=== PATIENT | female | born 1995 | race Caucasian/White ===

== ENCOUNTER 2023-05-18 07:57 | Emergency (ER) | payer MEDICAID ==
[2023-05-18] MEDS ORDERED: MORPHINE SULFATE 2 MG/ML SYRINGE IV STA (08:21)
[2023-05-18 08:24] VITALS: RESP 18
[2023-05-18 08:25] LABS: Appearance,Urine Clear (Clear); Bacteria,Urine Rare /hpf; Bilirubin,Urine Negative (Negative); Blood,Urine Large (Negative); Color,Urine Light Yellow; Glucose,Urine (UA) Negative (Negative); Ketones,Urine Negative (Negative); Leukocyte Esterase,Urine Negative (Negative); Mucus,Urine Rare /hpf; Nitrite,Urine Negative (Negative); Protein,Urine 1+ (Negative); RBC,Urine 25 /hpf (0-5); Specific Gravity,Urine 1.009 (1.001-1.035); Squamous Epithelial Cell,Urine 1 /hpf (0-4); Urobilinogen,Urine <2.0 mg/dL (<2.0); WBC,Urine 2 /hpf (0-5)
--- NOTE | 2023-05-18 08:25 | ED ---
General Adult HPI - General Chief complaint: Abdominal Pain Stated complaint: R side pain Time Seen by Provider: 05/18/23 08:04 Source: patient Mode of arrival: ambulatory Limitations: no limitations - History of Present Illness Initial comments: Dictation was produced using [employer] dictation software. please excuse any grammatical, word or spelling errors. Chief Complaint: 28-year-old female with right upper quadrant abdominal pain History of Present Illness: 2:28-year-old female presents with right upper quadrant abdominal pain. Patient has been having intermittent right upper quadrant abdominal pain for months. States that sometimes she has these sharp episodes of right upper quadrant pain are related to her back. Typically doesn't last long. This evening she woke up from bed because of right upper quadrant abdominal pain her pain was more intense and lasted longer than usual prompting her to come to the ER. Denies any fevers. Denies . No medical problems. No nausea vomiting. The ROS documented in this emergency department record has been reviewed and confirmed by me. Those systems with pertinent positive or negative responses have been documented in the HPI. All other systems are other negative and/or noncontributory. - Related Data Allergies Allergy/AdvReac Type Severity Reaction Status Date / Time No Known Allergies Allergy Verified 05/18/23 08:01 Review of Systems ROS Statement: Those systems with pertinent positive or pertinent negative responses have been documented in the HPI. ROS Other: All systems not noted in ROS Statement are negative. Past Medical History Past Medical History: No Reported History History of Any Multi-Drug Resistant Organisms: None Reported Past Surgical History: No Surgical Hx Reported Past Psychological History: No Psychological Hx Reported Smoking Status: Never smoker Past Alcohol Use History: None Reported Past Drug Use History: None Reported General Exam - General Exam Comments Initial Comments: PHYSICAL EXAM: General Impression: Alert and oriented x3, not in acute distress HEENT: Normocephalic atraumatic, extra-ocular movements intact, pupils equal and reactive to light bilaterally, mucous membranes moist. Cardiovascular: Heart regular rate and rhythm Chest: Able to complete full sentences, no retractions, no tachypnea Abdomen: abdomen soft, tenderness to the right upper quadrant, non-distended, no organomegaly Musculoskeletal: Pulses present and equal in all extremities, no peripheral edema Motor: no focal deficits noted Neurological: CN II-XII grossly intact, no focal motor or sensory deficits noted Skin: Intact with no visualized rashes Psych: Normal affect and mood Limitations: no limitations Course Vital Signs 05/18/23 05/18/23 05/18/23 07:59 08:23 09:36 Temperature 98.5 F 98.2 F 97.5 F L Pulse Rate 83 76 65 Respiratory 20 18 18 Rate Blood Pressure 122/88 136/99 145/96 O2 Sat by Pulse 99 96 99 Oximetry Medical Decision Making - Medical Decision Making Was pt. sent in by a medical professional or institution (, PA, HIM CLERK, urgent care, hospital, or jail...) When possible be specific @ -No Did you speak to anyone other than the patient for history (EMS, parent, family, police, friend...)? What history was obtained from this source @ -No Did you review nursing and triage notes (agree or disagree)? Why? @ -I reviewed and agree with nursing and triage notes Were old charts reviewed (outside hosp., previous admission, EMS record, old EKG, old radiological studies, urgent care reports/EKG's, jail records)? Report findings @ -No old charts were reviewed Differential Diagnosis (chest pain, altered mental status, abdominal pain women, abdominal pain men, vaginal bleeding, musculoskeletal, weakness, fever, dyspnea, syncope, headache, dizziness, GI bleed, back pain, seizure, CVA, palpatations, mental health)? @ -Differential Abdominal Pain Women: Appendicitis, Cholecystitis, diverticulosis, ischemic bowel, pancreatitis, hepatitis, UTI, gastroenteritis, AAA, incarcerated hernia, bowel obstruction, constipation, inflammatory bowel, hepatitis, peptic ulcer disease, splenic infarction, perforated viscus, vulvitis, ovarian torsion, PID, kidney stone, placenta abruption, this is not meant to be an all-inclusive list EKG interpreted by me (3pts min.). @ -None done X-rays interpreted by me (1pt min.). @ -None done CT interpreted by me (1pt min.). @ -Abdominal ultrasound shows gallstones U/S interpreted by me (1pt. min.). @ -None done What testing was considered but not performed or refused? (CT, X-rays, U/S, labs)? Why? @ -None What meds were considered but not given or refused? Why? @ -None Did you discuss the management of the patient with other professionals (professionals i.e. , PA, HIM CLERK, lab, RT, psych nurse, licensed social worker, electric motor rebuilder, teacher, senior major gifts officer, case resource manager)? Give summary @ -No Was smoking cessation discussed for >3mins.? @ -No Was critical care preformed (if so, how long)? @ -No Were there social determinants of health that impacted care today? How? (Homele ssness, low income, unemployed, alcoholism, drug addiction, transportation, low edu. Level, literacy, decrease access to med. care, custodial, rehab)? @ -No Was there de-escalation of care discussed even if they declined (Discuss DNR or withdrawal of care, Hospice)? DNR status @ -No What co-morbidities impacted this encounter? (DM, HTN, Smoking, COPD, CAD, Cancer, CVA, ARF, Chemo, Hep., AIDS, mental health diagnosis, sleep apnea, morbid obesity)? @ -None Was patient admitted / discharged? Hospital course, mention meds given and route, prescriptions, significant lab abnormalities, going to OR and other pertinent info. @ -28 Year-old female presents with right upper quadrant abdominal pain. Vital signs upon arrival are stable. Laboratory evaluation obtained. No leukocytosis. Abdominal exam is unremarkable. Ultrasound shows gallstones. Patient reevaluated at bedside with complete resolution of symptoms. Patient discharged with instruction to follow up with general surgery for outpatient management. Patient also given return precautions Undiagnosed new problem with uncertain prognosis? @ -No Drug Therapy requiring intensive monitoring for toxicity (Heparin, Nitro, Insulin, Cardizem)? @ -No Were any procedures done? @ -No Diagnosis/symptom? Acute, or Chronic, or Acute on Chronic? Uncomplicated (without systemic symptoms) or Complicated (systemic symptoms)? @ -Gallstones Side effects of treatment? @ -No Exacerbation, Progression, or Severe Exacerbation? @ -No Poses a threat to life or bodily function? How? (Chest pain, [place], [place], pneumonia, PE, COPD, DKA, ARF, appy, cholecystitis, CVA, Diverticulitis, Homicidal, Suicidal, threat to staff... and all critical care pts) @ -No - Lab Data Result diagrams: 05/18/23 08:33 05/18/23 08:33 Lab Results 05/18/23 05/18/23 05/18/23 Range/Units 08:14 08:14 08:33 WBC 8.0 (3.8-10.6) k/uL RBC 4.40 (3.80-5.40) m/uL Hgb 12.5 (11.4-16.0) gm/dL Hct 37.1 (34.0-46.0) % MCV 84.4 (80.0-100.0) fL MCH 28.4 (25.0-35.0) pg MCHC 33.7 (31.0-37.0) g/dL RDW 14.1 (11.5-15.5) % Plt Count 228 (150-450) k/uL MPV 9.2 Neutrophils % 65 % Lymphocytes % 25 % Monocytes % 5 % Eosinophils % 3 % Basophils % 1 % Neutrophils # 5.2 (1.3-7.7) k/uL Lymphocytes # 2.0 (1.0-4.8) k/uL Monocytes # 0.4 (0-1.0) k/uL Eosinophils # 0.2 (0-0.7) k/uL Basophils # 0.1 (0-0.2) k/uL Sodium (137-145) mmol/L Potassium (3.5-5.1) mmol/L Chloride (98-107) mmol/L Carbon Dioxide (22-30) mmol/L Anion Gap mmol/L BUN (7-17) mg/dL Creatinine (0.52-1.04) mg/dL Est GFR (CKD-EPI)AfAm (>60 ml/min/1.73 sqM) Est GFR (CKD-EPI)NonAf (>60 ml/min/1.73 sqM) Glucose (74-99) mg/dL Calcium (8.4-10.2) mg/dL Total Bilirubin (0.2-1.3) mg/dL AST (14-36) U/L ALT (4-34) U/L Alkaline Phosphatase (38-126) U/L Total Protein (6.3-8.2) g/dL Albumin (3.5-5.0) g/dL Lipase (23-300) U/L Urine Color Light Yellow Urine Appearance Clear (Clear) Urine pH 6.0 (5.0-8.0) Ur Specific Ovid 1.009 (1.001-1.035) Urine Protein 1+ H (Negative) Urine Glucose (UA) Negative (Negative) Urine Ketones Negative (Negative) Urine Blood Large H (Negative) Urine Nitrite Negative (Negative) Urine Bilirubin Negative (Negative) Urine Urobilinogen <2.0 (<2.0) mg/dL Ur Leukocyte Esterase Negative (Negative) Urine RBC 25 H (0-5) /hpf Urine WBC 2 (0-5) /hpf Ur Squamous Epith Cells 1 (0-4) /hpf Urine Bacteria Rare H (None) /hpf Urine Mucus Rare H (None) /hpf Urine HCG, Qual Not Detected (Not Detectd) 05/18/23 Range/Units 08:33 WBC (3.8-10.6) k/uL RBC (3.80-5.40) m/uL Hgb (11.4-16.0) gm/dL Hct (34.0-46.0) % MCV (80.0-100.0) fL MCH (25.0-35.0) pg MCHC (31.0-37.0) g/dL RDW (11.5-15.5) % Plt Count (150-450) k/uL MPV Neutrophils % % Lymphocytes % % Monocytes % % Eosinophils % % Basophils % % Neutrophils # (1.3-7.7) k/uL Lymphocytes # (1.0-4.8) k/uL Monocytes # (0-1.0) k/uL Eosinophils # (0-0.7) k/uL Basophils # (0-0.2) k/uL Sodium 137 (137-145) mmol/L Potassium 4.3 (3.5-5.1) mmol/L Chloride 107 (98-107) mmol/L Carbon Dioxide 23 (22-30) mmol/L Anion Gap 7 mmol/L BUN 13 (7-17) mg/dL Creatinine 1.00 (0.52-1.04) mg/dL Est GFR (CKD-EPI)AfAm 88 (>60 ml/min/1.73 sqM) Est GFR (CKD-EPI)NonAf 76 (>60 ml/min/1.73 sqM) Glucose 108 H (74-99) mg/dL Calcium 9.7 (8.4-10.2) mg/dL Total Bilirubin 0.2 (0.2-1.3) mg/dL AST 28 (14-36) U/L ALT 19 (4-34) U/L Alkaline Phosphatase 68 (38-126) U/L Total Protein 6.4 (6.3-8.2) g/dL Albumin 3.5 (3.5-5.0) g/dL Lipase 224 (23-300) U/L Urine Color Urine Appearance (Clear) Urine pH (5.0-8.0) Ur Specific Ovid (1.001-1.035) Urine Protein (Negative) Urine Glucose (UA) (Negative) Urine Ketones (Negative) Urine Blood (Negative) Urine Nitrite (Negative) Urine Bilirubin (Negative) Urine Urobilinogen (<2.0) mg/dL Ur Leukocyte Esterase (Negative) Urine RBC (0-5) /hpf Urine WBC (0-5) /hpf Ur Squamous Epith Cells (0-4) /hpf Urine Bacteria (None) /hpf Urine Mucus (None) /hpf Urine HCG, Qual (Not Detectd) Disposition Clinical Impression: Gallstones Disposition: HOME SELF-CARE Condition: Good Instructions (If sedation given, give patient instructions): Gallstones (ED) Is patient prescribed a controlled substance at d/c from ED?: No Referrals: Oscar Jenkins MD [STAFF PHYSICIAN] - 1-2 days Sim Mohr MD [Medical Doctor] - 1-2 days Jing Lombardo MD [STAFF PHYSICIAN] - 1-2 days Time of Disposition: 09:50
[2023-05-18 08:45] LABS: Basophils # (A) 0.1 k/uL (0-0.2); Basophils % (A) 1 %; Eosinophils # (A) 0.2 k/uL (0-0.7); Eosinophils % (A) 3 %; HCT 37.1 % (34.0-46.0); HGB 12.5 gm/dL (11.4-16.0); Lymphocytes % (A) 25 %; MCH 28.4 pg (25.0-35.0); MCHC 33.7 g/dL (31.0-37.0); MCV 84.4 fL (80.0-100.0); Mean Platelet Volume 9.2; Monocytes # (A) 0.4 k/uL (0-1.0); Monocytes % (A) 5 %; Neutrophils # (A) 5.2 k/uL (1.3-7.7); Neutrophils % (A) 65 %; Platelet Count 228 k/uL (150-450); RDW 14.1 % (11.5-15.5)
[2023-05-18 08:55] LABS: ALT 19 U/L (4-34); AST 28 U/L (14-36); African American GFR (CKD) 88 (>60 ml/min/1.73 sqM); Albumin 3.5 g/dL (3.5-5.0); Alkaline Phosphatase 68 U/L (38-126); Anion Gap 7 mmol/L; Blood Urea Nitrogen 13 mg/dL (7-17); Calcium 9.7 mg/dL (8.4-10.2); Carbon Dioxide 23 mmol/L (22-30); Chloride 107 mmol/L (98-107); Glucose 108 mg/dL (74-99); Lipase 224 U/L (23-300); Non-African American GFR(CKD) 76 (>60 ml/min/1.73 sqM); Potassium 4.3 mmol/L (3.5-5.1); Sodium 137 mmol/L (137-145); Total Bilirubin 0.2 mg/dL (0.2-1.3); Total Protein 6.4 g/dL (6.3-8.2)
--- NOTE | 2023-05-18 09:30 | US ---
EXAMINATION TYPE: US abdomen limited DATE OF EXAM: 05/18/2023 COMPARISON: NONE CLINICAL INDICATION: Female, 28 years old with history of ruq pain; TECHNIQUE: Multiple sonographic images of the right upper quadrant are obtained. FINDINGS: EXAM MEASUREMENTS: Liver Length: 16.7cm Gallbladder Wall: 0.2 cm CBD: 0.5 cm Right Kidney: 12.2 x 5.6 x 4.0 cm Pancreas: portion seen appear wnl Liver: wnl Gallbladder: stone within neck, when rolling patient small stones moved to fundus while large 1.5cm neck stone remained Evidence for sonographic Ragsdale's sign: YES CBD: wnl Right Kidney: renal fullness IMPRESSION: Gallstone within the gallbladder neck with positive sonographic Ragsdale sign. Wall is within normal li mits for size and there is no pericholecystic fluid. Correlate for acute cholecystitis
[2023-05-18 09:38] VITALS: BP 145/96; PULSE 65; TEMP 97.5
== END 2023-05-18 09:58 | disposition home or self-care (01) ==
LOC: EC 07:57
DX: K80.20 Calculus of gallbladder without cholecystitis without obstruction (principal)
CPT/HCPCS: 36415; 80053; 83690; 85025; 81001; 81025; 76705; 99284; 96374; J2270

== ENCOUNTER → 2023-06-10 | Day surgery (SDC) | payer MEDICAID ==
[~2023-06-10] MED LIST: ACETAMINOPHEN TAB 500 MG TAB PO PRN; BUPIVACAINE (PF) 0.25% 10 ML VIAL SQ ONE; DEXAMETHASONE SOD PHOSPHATE 4 MG/ML 1 ML VIAL IV ONE; GLYCOPYRROLATE 0.2 MG/ML 2 ML VIAL ONE; HEPARIN SODIUM,PORCINE/PF 5,000 UNIT/0.5 ML SYRINGE SQ PRN; HYDROmorphone (PF) 1 MG/ML ONE; HYDROmorphone 0.5 MG/0.5 ML SYRINGE IVP ONE; HYDROmorphone 0.5 MG/0.5 ML SYRINGE IVP PRN; LACTATED RINGERS 1,000 ML IV ONE; LACTATED RINGERS 1,000 ML IV SCH; LIDOCAINE 1% (10MG/ML) FOR IV START INTRADERMA PRN; LIDOCAINE 2% INJ 20 MG/ML (2 ML VIAL) ONE; MIDAZOLAM 2 MG/2 ML VIAL ONE; NEOSTIGMINE 1 MG/ML 10 ML VIAL ONE; ONDANSETRON 4 MG/2 ML VIAL IVP ONE; ONDANSETRON 4 MG/2 ML VIAL ONE; PROPOFOL 10 MG/ML 20 ML VIAL IV ONE; ROCURONIUM 10 MG/ML (5 ML VIAL) IV ONE; SUCCINYLCHOLINE CHLORIDE 200 MG/10 ML VIAL IV ONE; droPERidol 5 MG/2 ML VIAL IVP ONE; fentaNYL (PF) 50 MCG/ML 2 ML AMP ONE
[2023-06-10 07:33] VITALS: TEMP 97.8
--- NOTE | 2023-06-10 09:29 | P.OP ---
Date of Procedure: 06/10/23 Preoperative Diagnosis: Cholelithiasis Postoperative Diagnosis: Cholelithiasis Procedure(s) Performed: Laparoscopic cholecystectomy Anesthesia: WINSTON Surgeon: Oscar Jenkins Estimated Blood Loss (ml): 5 Pathology: other (Gallbladder) Condition: stable Disposition: PACU Description of Procedure: The patient was placed on the operating table. The patient received a general endotracheal tube anesthesia. The patients abdomen was prepped and draped in the usual sterile fashion. Through an infraumbilical stab incision, the fascia of the anterior abdominal wall was grasped with a pair of Kochers and then the Veress needle was placed in the peritoneal cavity. Position of the Veress needle was confirmed with positive drop test. The abdomen was then insufflated. After adequate insufflation, the 10 mm trocar was placed in the peritoneal cavity. Following this the laparoscope was placed in the peritoneal cavity. The patient was placed in the head-up, right side up position and then a 5 mm trocar was placed in the right lateral and right subcostal position under direct visualization. A 8 mm trocar was placed in the epigastric position. The gallbladder was grasped in the fundus and infundibulum. Traction on the gallbladder was placed in the lateral and the cephalad positions. The triangle of Calot was visualized.. The cystic duct was bluntly dissected until the union of the cystic duct and common bile duct was seen. A critical view of safety was achieved. The cystic duct was then divided and sealed with the Harmonic scissors. A PDS Endoloop was then placed throughout the cystic duct stump. The cystic artery divided and sealed with the Harmonic scissors. The gallbladder was then removed from the liver bed using Harmonic scissors. The gallbladder was then extracted through the epigastric port site. Operative field was checked for any bleeding spots and Harmonic scissors was used to coagulate the liver bed. The abdomen was irrigated. The trocars were removed. The skin was closed using interrupted 3-0 Vicryl suture. Dermabond dressing were applied. The patient tolerated the procedure well.
[2023-06-10 14:27] VITALS: RESP 14
[2023-06-10 15:11] VITALS: BP 125/85; PULSE 86
== END | disposition home or self-care (01) ==
LOC: OR 07:05
PROVIDERS: ATTEND Surgery
DX: K80.10 Calculus of gallbladder with chronic cholecystitis without obstruction (principal); Z98.890 Other specified postprocedural states
CPT/HCPCS: 47562; 81025; 88304; J2250; J0330; J1100; J2710; J0690; J2405; J3010; J1170 ×2; J2704; J1644; J2001; J0665

== ENCOUNTER → 2023-09-15 | Outpatient (CLI) | payer MEDICAID | END | disposition home or self-care (01) | LOC: LABPRL 14:05 | PROVIDERS: ATTEND Midwife | DX: Z53.9 Procedure and treatment not carried out, unspecified reason (principal) ==

== ENCOUNTER 2024-03-07 22:06 | Inpatient (IN) | payer MEDICAID, OTHER ==
[2024-03-07 22:18] LABS: Glucose,Whole Blood 80 mg/dL (70-110)
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
[2024-03-07] MEDS: SODIUM CHLORIDE 0.9% 1,000 ML IV STA (22:38)
[2024-03-07 22:45] LABS: Basophils % (A) 0 %; Eosinophils # (A) 0.1 k/uL (0-0.7); Eosinophils % (A) 1 %; HCT 37.7 % (34.0-46.0); HGB 11.7 gm/dL (11.4-16.0); Lymphocytes # (A) 1.9 k/uL (1.0-4.8); Lymphocytes % (A) 26 %; MCH 25.5 pg (25.0-35.0); MCV 82.4 fL (80.0-100.0); Mean Platelet Volume 10.3; Monocytes # (A) 0.3 k/uL (0-1.0); Monocytes % (A) 5 %; Neutrophils # (A) 4.8 k/uL (1.3-7.7); Neutrophils % (A) 66 %; Platelet Count 202 k/uL (150-450); RBC 4.58 m/uL (3.80-5.40); RDW 15.9 % (11.5-15.5); WBC 7.4 k/uL (3.8-10.6)
[2024-03-07 22:49] LABS: Appearance,Urine Clear (Clear); Bacteria,Urine Rare /hpf; Bilirubin,Urine Negative (Negative); Blood,Urine Moderate (Negative); Color,Urine Colorless; Glucose,Urine (UA) Negative (Negative); Ketones,Urine Negative (Negative); Leukocyte Esterase,Urine Negative (Negative); Nitrite,Urine Negative (Negative); Protein,Urine Trace (Negative); RBC,Urine <1 /hpf (0-5); Specific Gravity,Urine 1.001 (1.001-1.035); Squamous Epithelial Cell,Urine 1 /hpf (0-4); Urobilinogen,Urine <2.0 mg/dL (<2.0); WBC,Urine <1 /hpf (0-5)
[2024-03-07 23:19] LABS: Amphetamine Screen,Urine Not Detected (NotDetected); Barbiturate Screen,Urine Not Detected (NotDetected); Benzodiazepines Screen,Urine Not Detected (NotDetected); Cocaine Screen,Urine Not Detected (NotDetected); Methadone Screen, Urine Not Detected (NotDetected); Opiate Screen,Urine Not Detected (NotDetected); Oxycodone Screen, Urine Not Detected (NotDetected); Phencyclidine Screen,Urine Not Detected (NotDetected); Tricyclic Antidepressant,Urine Not Detected (NotDetected); Urn Cannabinoid Scrn Not Detected (NotDetected)
[2024-03-07 23:38] LABS: ALT 13 U/L (4-34); AST 25 U/L (14-36); African American GFR (CKD) 79 (>60 ml/min/1.73 sqM); Alcohol 59 mg/dL; Alkaline Phosphatase 55 U/L (38-126); Anion Gap 8 mmol/L; Blood Urea Nitrogen 12 mg/dL (7-17); Calcium 9.3 mg/dL (8.4-10.2); Carbon Dioxide 20 mmol/L (22-30); Chloride 112 mmol/L (98-107); Glucose 80 mg/dL (74-99); Non-African American GFR(CKD) 68 (>60 ml/min/1.73 sqM); Potassium 3.8 mmol/L (3.5-5.1); Sodium 140 mmol/L (137-145); Total Bilirubin 0.3 mg/dL (0.2-1.3); Total Protein 6.8 g/dL (6.3-8.2)
--- NOTE | 2024-03-08 00:44 | XR ---
EXAM: XR Chest, 1 View CLINICAL HISTORY: ITS.REASON XR Reason: cough TECHNIQUE: Frontal view of the chest. COMPARISON: No relevant prior studies available. FINDINGS: Lungs: Unremarkable. No consolidation. Pleural space: Unremarkable. No pleural effusion or pneumothorax. Heart: Unremarkable. No cardiomegaly or pulmonary vascular congestion. Bones/joints: No acute fracture. No dislocation. IMPRESSION: No evidence of acute cardiopulmonary disease.
[2024-03-08] MEDS ORDERED: ACETAMINOPHEN TAB 325 MG TAB PO PRN (03:47)
[2024-03-08] MEDS ORDERED: traZODone HCL 50 MG TAB PO PRN (03:47)
[2024-03-08] MEDS ORDERED: haloperidoL 5 MG TAB PO PRN (03:47)
[2024-03-08] MEDS ORDERED: MAGNESIUM HYDROXIDE 2,400 MG/30 ML CUP PO PRN (03:47)
[2024-03-08] MEDS ORDERED: LORazepam 2 MG/ML INJ IM PRN (03:47)
[2024-03-08] MEDS ORDERED: LORazepam 1 MG TAB PO PRN (03:47)
[2024-03-08] MEDS ORDERED: IBUPROFEN 600 MG TAB PO PRN (03:47)
[2024-03-08] MEDS ORDERED: MAG HYDROX/AL HYDROX/SIMETH 355 ML BOTTLE PO PRN (03:47)
[2024-03-08] MEDS ORDERED: HALOPERIDOL LACTATE 5 MG/ML 1 ML VIAL IM PRN (03:47)
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
[2024-03-08] MEDS: SERTRALINE 25 MG TAB PO SCH (14:42)
[2024-03-08 16:41] LABS: Chol/HDL Ratio 3.66 Ratio; LDL Cholesterol,Calculated 84.4 mg/dL (0.0-131.0)
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
--- NOTE | 2024-03-09 11:43 | P.PN ---
Progress Note - Text Progress Note Date: 03/09/24 Interval History: Patient was seen wandering the hallways and was directable and agreeable to sp christine with global technical writer in the office. Patient stated that she is doing good today. She is sleeping well, and her appetite is good. She is focused on discharge. She offers no other complaints. Presents as stand offish today and concrete. Still minimizing her suicide attempt. denies any depression or anxiety. At this time patient denies any suicidal or homical ideations, intent or plan. Patient denies any auditory, visual hallucinations and denies any paranoia or delusions. Patient denies any side effects from the medications and has been compliant with meds. MENTAL STATUS EXAM: General Appearance: Patient appears to be stated age, is alert, directable, and attempts to cooperate. Patient appears to have fair hygiene and grooming. Behavior: Patient is seated without any agitated behavior. Minimizing suicide attempt. Guarded, Evasive, demanding less today Speech: Patient's speech is fluent, loud at times, and nonpressured. Argumentative Mood/Affect: Patient reports their mood is depressed, affect is congruent and constricted. Suicidality/Homicidality: Patient denies having any homicidal ideation intent or plan. Denies any suicidal ideations intent or plan Perceptions: Patient denies any visual hallucinations and denies any auditory hallucinations Though content/process: There is no evidence of any delusional thought content and thought process is linear and goal-directed. minimizng her sx, focused on discharge Memory and concentration: AOX3, grossly intact for the purposes of this session Judgment and insight: poor, improving mildly IMPRESSIONS: depressive disorder, unspecified alcohol use disorder, mild PLAN: -Patient is admitted under voluntary status to MHU for stabilization of psychiatric symptoms and safety. Patient has signed adult voluntary form and medication consent and is placed in patient's chart. -Medications : increase Zoloft 50mg po daily for mood/anxiety, trazodone 50mg po qhs PRN for sleep -Ativan and Haldol PRN for agitation/aggression -NRT - nicotine patch -SW on board for discharge planning. Encourage patient to participate in groups to work on coping skills. Likely discharge Thursday, if patient improves
[2024-03-10] MEDS: SERTRALINE 50 MG TAB PO SCH (08:08)
--- NOTE | 2024-03-10 11:06 | P.PN ---
Progress Note - Text Progress Note Date: 03/10/24 Interval History: Patient was seen wandering the hallways and was directable and agreeable to paula king with screenplay writer in the office. Patient stated that she is doing good today. Patient apologetic for her behaviors when she was admitted. Patient admitted that what she did was reckless, however, it was not an attempt at suicide. She is sleeping well, and her appetite is good. She is focused on discharge. She offers no other complaints. She is claiming that she is going to groups and participate as best as she can. Patient denies any depression or anxiety claims that overall she is doing better. At this time patient denies any suicidal or homicidal ideations, intent or plan. Patient denies any auditory, visual hallucinations and denies any paranoia or delusions. Patient denies any side effects from the medications and has been compliant with meds. MENTAL STATUS EXAM: General Appearance: Patient appears to be stated age, is alert, directable, and attempts to cooperate. Patient appears to have fair hygiene and grooming. Behavior: Patient is seated without any agitated behavior. Apologetic, improving Speech: Patient's speech is fluent, loud at times, and nonpressured. not argumentive today Mood/Affect: Patient reports their mood is depressed, affect is congruent improving Suicidality/Homicidality: Patient denies having any homicidal ideation intent or plan. Denies any suicidal ideations intent or plan Perceptions: Patient denies any visual hallucinations and denies any auditory hallucinations Though content/process: There is no evidence of any delusional thought content and thought process is linear and goal-directed. improving mildly Memory and concentration: AOX3, grossly intact for the purposes of this session Judgment and insight: Improving IMPRESSIONS: depressive disorder, unspecified alcohol use disorder, mild PLAN: -Patient is admitted under voluntary status to MHU for stabilization of psychiatric symptoms and safety. Patient has signed adult voluntary form and medication consent and is placed in patient's chart. -Medications : Zoloft 50mg po daily for mood/anxiety, trazodone 50mg po qhs PRN for sleep -Ativan and Haldol PRN for agitation/aggression -NRT - nicotine patch -SW on board for discharge planning. Encourage patient to participate in groups to work on coping skills. Likely discharge tomorrow if patient continues to improve
[2024-03-11 06:24] VITALS: BP 132/60; PULSE 99; RESP 14; TEMP 97.5
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
== END 2024-03-11 12:15 | disposition home or self-care (01) | DRG 881 ==
LOC: EC 22:06 → 3MHU 03-08 03:46
PROVIDERS: ADMIT Psychiatry & Neurology Psychiatry; ATTEND Psychiatry & Neurology Psychiatry
DX: F32.A Depression, unspecified (principal); R45.851 Suicidal ideations; F10.10 Alcohol abuse, uncomplicated; E66.9 Obesity, unspecified; Z68.38 Body mass index [BMI] 38.0-38.9, adult; Z11.52 Encounter for screening for COVID-19; F41.9 Anxiety disorder, unspecified; E78.1 Pure hyperglyceridemia; Y90.2 Blood alcohol level of 40-59 mg/100 ml; X31.XXXA Exposure to excessive natural cold, initial encounter; X71.3XXA Intentional self-harm by drowning and submersion in natural water, initial encounter; Z79.899 Other long term (current) drug therapy
CPT/HCPCS: 36415; 71045; 80053; 80061; 80306; 80320; 81001; 81025; 82075; 83036; 84443; 85025; 87635; 93005; 96360; 96361; 99291

== ENCOUNTER 2024-08-22 08:56 | Emergency (ER) | payer OTHER ==
--- NOTE | 2024-08-22 09:35 | ED ---
Female Urogenital HPI - General Chief complaint: Vaginal Bleeding Stated complaint: Vaginal bleed-10 weeks preg Time Seen by Provider: 08/22/24 09:10 Source: patient, RN notes reviewed Mode of arrival: ambulatory Limitations: no limitations - History of Present Illness Initial comments: This is a 29-year-old female [id number] with no significant past medical history presenting to the emergency department for chief complaint of vaginal bleeding and right flank pain. Patient states that yesterday around 1800 to experience right flank pain and associated vaginal bleeding with passage of clot. Patient is approximately 10 weeks and had ultrasound completed 2 weeks ago which revealed a single intrauterine . She denies blurry vision, do uble vision, headaches, nausea or vomiting. States that urine has been slightly cloudy over the past few days, denies dysuria or increase in urinary frequency and urgency. Patient states that she has a history of kidney infections. Last Menstrual Period: 06/09/24 - Related Data Previous Rx's Medication Instructions Recorded Sertraline [Zoloft] 50 mg PO DAILY 30 Days #30 tab 03/11/24 Allergies Allergy/AdvReac Type Severity Reaction Status Date / Time No Known Allergies Allergy Verified 03/08/24 03:51 Review of Systems ROS Statement: Those systems with pertinent positive or pertinent negative responses have been documented in the HPI. ROS Other: All systems not noted in ROS Statement are negative. Past Medical History Past Medical History: No Reported History Additional Past Medical History / Comment(s): bladder infections History of Any Multi-Drug Resistant Organisms: None Reported Past Surgical History: Cholecystectomy Additional Past Surgical History / Comment(s): unwanted breast tissue removed from under arms Past Anesthesia/Blood Transfusion Reactions: No Reported Reaction Past Psychological History: Anxiety Smoking Status: Never smoker Past Alcohol Use History: None Reported Past Drug Use History: None Reported - Past Family History Father Family Medical History: No Reported History Mother Family Medical History: No Reported History General Exam Limitations: no limitations General appearance: alert, in no apparent distress ENT exam: Present: normal exam, mucous membranes moist Neck exam: Present: normal inspection. Absent: tenderness, meningismus, lymphadenopathy Respiratory exam: Present: normal lung sounds bilaterally. Absent: respiratory distress, wheezes, rales, rhonchi, stridor Cardiovascular Exam: Present: regular rate, normal rhythm, normal heart sounds. Absent: systolic murmur, diastolic murmur, rubs, gallop, clicks GI/Abdominal exam: Present: soft, tenderness (pelvic), normal bowel sounds. Absent: distended, guarding, rebound, rigid Extremities exam: Present: normal inspection, full ROM, normal capillary refill. Absent: tenderness, pedal edema, joint swelling, calf tenderness Back exam: Present: normal inspection, full ROM, CVA tenderness (R) Skin exam: Present: warm, dry, intact, normal color. Absent: rash Course Vital Signs 08/22/24 08/22/24 09:09 12:13 Temperature 98.6 F 98.1 F Pulse Rate 69 68 Respiratory 16 18 Rate Blood Pressure 127/94 130/74 O2 Sat by Pulse 100 99 Oximetry Medical Decision Making - Medical Decision Making Was pt. sent in by a medical professional or institution (, PA, DIRECTOR OF KNOWLEDGE MANAGEMENT, urgent care, hospital, or fci...) When possible be specific @ -No Did you speak to anyone other than the patient for history (EMS, parent, family, police, friend...)? What history was obtained from this source @ -No Did you review nursing and triage notes (agree or disagree)? Why? @ -I reviewed and agree with nursing and triage notes Were old charts reviewed (outside hosp., previous admission, EMS record, old EKG, old radiological studies, urgent care reports/EKG's, fci records)? Report findings @ -No old charts were reviewed Differential Diagnosis (chest pain, altered mental status, abdominal pain women, abdominal pain men, vaginal bleeding, weakness, fever, dyspnea, syncope, headache, dizziness, GI bleed, back pain, seizure, CVA, palpatations, mental health, musculoskeletal)? @ -Differential Vaginal Bleeding: Spontaneous , threatened , molar , ectopic , bloody show, incompetent cervix, abruptioplacenta, placenta previa, uterine rupture, dysfunctional uterine bleeding, hemorrhage, uterine fibroids, this is not meant to be an all-inclusive list. EKG interpreted by me (3pts min.). @ -none X-rays interpreted by me (1pt min.). @ -None done CT interpreted by me (1pt min.). @ -None done U/S interpreted by me (1pt. min.). @ -Transabdominal ultrasound reveals a intrauterine gestation with no heart tones identified a gestational sac estimated gestational age of 6 weeks 6 days What testing was considered but not performed or refused? (CT, X-rays, U/S, labs)? Why? @ -None What meds were considered but not given or refused? Why? @ -None Did you discuss the management of the patient with other professionals (professionals i.e. , PA, DIRECTOR OF KNOWLEDGE MANAGEMENT, lab, RT, psych nurse, rn social work, biochemistry professor, teacher, college service officer, sample case porter)? Give summary @ -No Was smoking cessation discussed for >3mins.? @ -No Was critical care preformed (if so, how long)? @ -No Were there social determinants of health that impacted care today? How? (Homelessness, low income, unemployed, alcoholism, drug addiction, transp ortation, low edu. Level, literacy, decrease access to med. care, custodial, rehab)? @ -No Was there de-escalation of care discussed even if they declined (Discuss DNR or withdrawal of care, Hospice)? DNR status @ -No What co-morbidities impacted this encounter? (DM, HTN, Smoking, COPD, CAD, Cancer, CVA, ARF, Chemo, Hep., AIDS, mental health diagnosis, sleep apnea, morbid obesity)? @ -None Was patient admitted / discharged? Hospital course, mention meds given and route, prescriptions, significant lab abnormalities, going to OR and other pertinent info. @ -Discharge. 29-year-old female with abdominal pain and vaginal bleeding during . On my evaluation the patient she is resting company no signs acute distress. Vitals are stable. She is noted to have suprapubic tenderness to palpation and mild right-sided CVA tenderness. Patient was offered Tylenol however is declined at this time. hCG level over 29,000. Urinalysis unremarkable for infection, epithelial cells consistent with contamination. Ultrasound concerning for demise. Patient was informed of imaging and laboratory results from today and given a prescription to repeat hCG testing in 48 hours. Additionally, patient has a ultrasound scheduled next week with her OB for further evaluation. All questions have been answered at bedside strict return parameters discussed with the patient she is verbalized understanding. Discussed with Dr. Ware Undiagnosed new problem with uncertain prognosis? @ -No Drug Therapy requiring intensive monitoring for toxicity (Heparin, Nitro, Insulin, Cardizem)? @ -No Were any procedures done? @ -No Diagnosis/symptom? @ - demise Acute, or Chronic, or Acute on Chronic? @ -acute Uncomplicated (without systemic symptoms) or Complicated (systemic symptoms)? @ -complicated Side effects of treatment? @ -No Exacerbation, Progression, or Severe Exacerbation? @ -No Poses a threat to life or bodily function? How? (Chest pain, [place], MA, pneumonia, PE, COPD, DKA, ARF, appy, cholecystitis, CVA, Diverticulitis, Homicidal, Suicidal, threat to staff... and all critical care pts) @ -No - Lab Data Result diagrams: 08/22/24 09:37 08/22/24 09:37 Lab Results 08/22/24 08/22/24 08/22/24 Range/Units 09:37 09:37 09:37 WBC 10.5 (3.8-10.6) k/uL RBC 4.57 (3.80-5.40) m/uL Hgb 11.8 (11.4-16.0) gm/dL Hct 36.9 (34.0-46.0) % MCV 80.9 (80.0-100.0) fL MCH 25.8 (25.0-35.0) pg MCHC 31.9 (31.0-37.0) g/dL RDW 15.3 (11.5-15.5) % Plt Count 244 (150-450) k/uL MPV 8.6 Neutrophils % 73 % Lymphocytes % 19 % Monocytes % 4 % Eosinophils % 2 % Basophils % 0 % Neutrophils # 7.7 (1.3-7.7) k/uL Lymphocytes # 2.0 (1.0-4.8) k/uL Monocytes # 0.4 (0-1.0) k/uL Eosinophils # 0.3 (0-0.7) k/uL Basophils # 0.0 (0-0.2) k/uL Sodium 136 L (137-145) mmol/L Potassium 4.3 (3.5-5.1) mmol/L Chloride 107 (98-107) mmol/L Carbon Dioxide 22 (22-30) mmol/L Anion Gap 7 mmol/L BUN 13 (7-17) mg/dL Creatinine 0.97 (0.52-1.04) mg/dL Est GFR (CKD-EPI)AfAm >90 (>60 ml/min/1.73 sqM) Est GFR (CKD-EPI)NonAf 78 (>60 ml/min/1.73 sqM) Glucose 93 (74-99) mg/dL Calcium 9.2 (8.4-10.2) mg/dL Total Bilirubin 0.2 (0.2-1.3) mg/dL AST 16 (14-36) U/L ALT 9 (4-34) U/L Alkaline Phosphatase 62 (38-126) U/L Total Protein 6.6 (6.3-8.2) g/dL Albumin 3.8 (3.5-5.0) g/dL HCG, Quant 53573.5 mIU/mL Urine Color Colorless Urine Appearance Cloudy H (Clear) Urine pH 6.0 (5.0-8.0) Ur Specific [place] 1.009 (1.001-1.035) Urine Protein Trace H (Negative) Urine Glucose (UA) Negative (Negative) Urine Ketones Negative (Negative) Urine Blood Small H (Negative) Urine Nitrite Negative (Negative) Urine Bilirubin Negative (Negative) Urine Urobilinogen <2.0 (<2.0) mg/dL Ur Leukocyte Esterase Moderate H (Negative) Urine RBC 1 (0-5) /hpf Urine WBC 2 (0-5) /hpf Ur Squamous Epith Cells 5 H (0-4) /hpf Urine Bacteria Occasional H (None) /hpf Urine Mucus Rare H (None) /hpf Blood Type Blood Type Confirm Blood Type Recheck Bld Type Recheck Status Antibody Screen Spec Expiration Date 08/22/24 08/22/24 Range/Units 09:43 10:44 WBC (3.8-10.6) k/uL RBC (3.80-5.40) m/uL Hgb (11.4-16.0) gm/dL Hct (34.0-46.0) % MCV (80.0-100.0) fL MCH (25.0-35.0) pg MCHC (31.0-37.0) g/dL RDW (11.5-15.5) % Plt Count (150-450) k/uL MPV Neutrophils % % Lymphocytes % % Monocytes % % Eosinophils % % Basophils % % Neutrophils # (1.3-7.7) k/uL Lymphocytes # (1.0-4.8) k/uL Monocytes # (0-1.0) k/uL Eosinophils # (0-0.7) k/uL Basophils # (0-0.2) k/uL Sodium (137-145) mmol/L Potassium (3.5-5.1) mmol/L Chloride (98-107) mmol/L Carbon Dioxide (22-30) mmol/L Anion Gap mmol/L BUN (7-17) mg/dL Creatinine (0.52-1.04) mg/dL Est GFR (CKD-EPI)AfAm (>60 ml/min/1.73 sqM) Est GFR (CKD-EPI)NonAf (>60 ml/min/1.73 sqM) Glucose (74-99) mg/dL Calcium (8.4-10.2) mg/dL Total Bilirubin (0.2-1.3) mg/dL AST (14-36) U/L ALT (4-34) U/L Alkaline Phosphatase (38-126) U/L Total Protein (6.3-8.2) g/dL Albumin (3.5-5.0) g/dL HCG, Quant mIU/mL Urine Color Urine Appearance (Clear) Urine pH (5.0-8.0) Ur Specific [place] (1.001-1.035) Urine Protein (Negative) Urine Glucose (UA) (Negative) Urine Ketones (Negative) Urine Blood (Negative) Urine Nitrite (Negative) Urine Bilirubin (Negative) Urine Urobilinogen (<2.0) mg/dL Ur Leukocyte Esterase (Negative) Urine RBC (0-5) /hpf Urine WBC (0-5) /hpf Ur Squamous Epith Cells (0-4) /hpf Urine Bacteria (None) /hpf Urine Mucus (None) /hpf Blood Type O Negative Blood Type Confirm O Negative Blood Type Recheck No Previous Record Bld Type Recheck Status ABR ONLY Antibody Screen NEGATIVE Spec Expiration Date 08/25/20242342 Disposition Clinical Impression: demise, Vaginal bleeding Disposition: HOME SELF-CARE Condition: Stable Instructions (If sedation given, give patient instructions): Threatened Miscarriage (ED) Additional Instructions: Please return to the Emergency Department if symptoms worsen or any other concerns. Return for serial hCG testing. Follow-up as scheduled with OB for further evaluation. Is patient prescribed a controlled substance at d/c from ED?: No Referrals: Leonel Saleem MD [Primary Care Provider] - 1-2 days Time of Disposition: 11:21
[2024-08-22 09:56] LABS: Basophils % (A) 0 %; Eosinophils # (A) 0.3 k/uL (0-0.7); Eosinophils % (A) 2 %; HCT 36.9 % (34.0-46.0); HGB 11.8 gm/dL (11.4-16.0); Lymphocytes % (A) 19 %; MCH 25.8 pg (25.0-35.0); MCHC 31.9 g/dL (31.0-37.0); MCV 80.9 fL (80.0-100.0); Mean Platelet Volume 8.6; Monocytes # (A) 0.4 k/uL (0-1.0); Monocytes % (A) 4 %; Neutrophils # (A) 7.7 k/uL (1.3-7.7); Neutrophils % (A) 73 %; Platelet Count 244 k/uL (150-450); RBC 4.57 m/uL (3.80-5.40); RDW 15.3 % (11.5-15.5); WBC 10.5 k/uL (3.8-10.6)
[2024-08-22 10:13] LABS: Appearance,Urine Cloudy (Clear); Bacteria,Urine Occasional /hpf; Bilirubin,Urine Negative (Negative); Blood,Urine Small (Negative); Color,Urine Colorless; Glucose,Urine (UA) Negative (Negative); Ketones,Urine Negative (Negative); Leukocyte Esterase,Urine Moderate (Negative); Mucus,Urine Rare /hpf; Nitrite,Urine Negative (Negative); Protein,Urine Trace (Negative); RBC,Urine 1 /hpf (0-5); Specific Gravity,Urine 1.009 (1.001-1.035); Squamous Epithelial Cell,Urine 5 /hpf (0-4); Urobilinogen,Urine <2.0 mg/dL (<2.0); WBC,Urine 2 /hpf (0-5)
[2024-08-22 10:24] LABS: ALT 9 U/L (4-34); AST 16 U/L (14-36); African American GFR (CKD) >90 (>60 ml/min/1.73 sqM); Albumin 3.8 g/dL (3.5-5.0); Alkaline Phosphatase 62 U/L (38-126); Anion Gap 7 mmol/L; Blood Urea Nitrogen 13 mg/dL (7-17); Calcium 9.2 mg/dL (8.4-10.2); Carbon Dioxide 22 mmol/L (22-30); Chloride 107 mmol/L (98-107); Glucose 93 mg/dL (74-99); Non-African American GFR(CKD) 78 (>60 ml/min/1.73 sqM); Potassium 4.3 mmol/L (3.5-5.1); Sodium 136 mmol/L (137-145); Total Bilirubin 0.2 mg/dL (0.2-1.3); Total Protein 6.6 g/dL (6.3-8.2)
--- NOTE | 2024-08-22 10:57 | US ---
EXAMINATION TYPE: Transabdominal DATE OF EXAM: 08/22/2024 10:22 AM COMPARISON: NONE CLINICAL INDICATION: Female, 29 years old with history of pain, cramping, clots, 10 weeks; Cramping. Hx 1 miscarriage, 1 stillbirth. TECHNIQUE: Transvaginal (TV) and Transabdominal (TA) with grayscale and color Doppler imaging includi ng first trimester . FINDINGS: EXAM MEASUREMENTS: GESTATIONAL AGE / DATING Physician Established: Not yet established Dates by LMP: (10 weeks/4 days) EDC: 03/16/2025 Dates by First Scan: This is first scan at this facility Dates by Current Scan for: (6 weeks/4 days) EDC: 04/13/2025 according to CRL. MATERNAL ANATOMY Uterus: 11.5 x 8.8 x 7.6 cm. Some fluid seen in cervix. Subcentimeter anechoic areas seen in cervix. Right Ovary: 4.4 x 3.1 x 2.8 cm. Anechoic area seen= 2.7 x 2.6 x 2.3 cm. Left Ovary: Not seen Post CDS / Adnexa: Appear wnl Presence of free fluid: None seen Presence of corpus luteal cyst: Possible within right ovary as mentioned above. Presence of subchorionic bleed: Complex area seen adjacent to gestational sac TA, but not well seen T V. GESTATION / SURVEY CRL: 0.67 cm (6 weeks/4 days) Gestational morphology: Within normal limits Gestational Sac MSD: 2.2 cm (6 weeks/6 days) Yolk Sac (normal less than 6mm): not seen Heart Rate: Not visualized on M mode, possibly due to early gestation? IUP: CRL seen, heart tones not yet seen with M mode evaluation possibly due to early gestation. Date of LMP: 06/09/2024 Beta HcG (if available): Not available IMPRESSION: 1. Intrauterine gestation with current scan dates and concordant with last menstrual period. No feta l heart tones identified. Findings concerning for demise. Close clinical follow-up and serial b eta-hCG recommended. 2. Small chorionic hemorrhage suggested. [facility], , 08/22/2024 10:54 AM
[2024-08-22 11:21] LABS: HCG,Quantitative Serum 29088.5 mIU/mL
[2024-08-22] MEDS: Rhogam IMMUNE GLOBULIN 1,500 UNIT/1 ML IM ONE (12:02)
[2024-08-22 12:14] VITALS: BP 130/74; PULSE 68; RESP 18; TEMP 98.1
== END 2024-08-22 12:14 | disposition home or self-care (01) ==
LOC: EC 08:56
DX: O36.4XX1 Maternal care for intrauterine death, fetus 1 (principal)
CPT/HCPCS: 99284; 96372; 36415; 86900; 86901; 80053; 85025; 86850; 81001; 84702; 76801; 76817; J2790

== ENCOUNTER → 2024-08-23 | Outpatient (CLI) | payer OTHER | END | disposition home or self-care (01) | LOC: LABWHC1 12:13 | PROVIDERS: ATTEND Physician Assistant | DX: O36.4XX0 Maternal care for intrauterine death, not applicable or unspecified (principal) | CPT/HCPCS: 36415; 84702 ==

== ENCOUNTER 2024-08-26 12:07 | Emergency (ER) | payer OTHER ==
[2024-08-26 12:37] VITALS: TEMP 98.4
[2024-08-26 13:17] LABS: Basophils % (A) 0 %; Eosinophils # (A) 0.3 k/uL (0-0.7); Eosinophils % (A) 2 %; HCT 32.9 % (34.0-46.0); HGB 10.8 gm/dL (11.4-16.0); Hypochromasia Slight; Lymphocytes % (A) 13 %; MCH 26.6 pg (25.0-35.0); MCHC 32.7 g/dL (31.0-37.0); MCV 81.2 fL (80.0-100.0); Mean Platelet Volume 8.5; Monocytes # (A) 0.7 k/uL (0-1.0); Monocytes % (A) 4 %; Neutrophils # (A) 11.9 k/uL (1.3-7.7); Neutrophils % (A) 80 %; Platelet Count 259 k/uL (150-450); RBC 4.05 m/uL (3.80-5.40); RDW 15.3 % (11.5-15.5)
[2024-08-26] MEDS: MORPHINE SULFATE 4 MG/ML SYRINGE IV STA (13:20)
[2024-08-26] MEDS: ONDANSETRON 4 MG/2 ML VIAL IVP STA (13:21)
[2024-08-26] MEDS: SODIUM CHLORIDE 0.9% 1,000 ML IV ONE (13:24)
[2024-08-26 13:33] LABS: ALT 9 U/L (4-34); AST 15 U/L (14-36); African American GFR (CKD) 72 (>60 ml/min/1.73 sqM); Albumin 3.8 g/dL (3.5-5.0); Alkaline Phosphatase 72 U/L (38-126); Anion Gap 7 mmol/L; Blood Urea Nitrogen 12 mg/dL (7-17); Carbon Dioxide 24 mmol/L (22-30); Chloride 106 mmol/L (98-107); Glucose 94 mg/dL (74-99); Non-African American GFR(CKD) 62 (>60 ml/min/1.73 sqM); Potassium 3.8 mmol/L (3.5-5.1); Sodium 137 mmol/L (137-145); Total Bilirubin 0.4 mg/dL (0.2-1.3); Total Protein 6.5 g/dL (6.3-8.2)
[2024-08-26 13:48] LABS: HCG,Quantitative Serum 13780.7 mIU/mL
[2024-08-26 13:49] LABS: Appearance,Urine Cloudy (Clear); Bacteria,Urine Few /hpf; Bilirubin,Urine Negative (Negative); Blood,Urine Large (Negative); Color,Urine Light Red; Glucose,Urine (UA) Negative (Negative); Ketones,Urine Negative (Negative); Leukocyte Esterase,Urine Small (Negative); Mucus,Urine Rare /hpf; Nitrite,Urine Negative (Negative); PH, Urine 5.5 (5.0-8.0); Protein,Urine 1+ (Negative); RBC,Urine >182 /hpf (0-5); Specific Gravity,Urine 1.021 (1.001-1.035); Urobilinogen,Urine <2.0 mg/dL (<2.0); WBC,Urine 15 /hpf (0-5)
--- NOTE | 2024-08-26 14:01 | US ---
EXAMINATION TYPE: US OB limited DATE OF EXAM: 08/26/2024 COMPARISON: 08/22/24 CLINICAL INDICATION: Female, 29 years old with history of suspected demise, heavy bleeding; Hea vy bleeding. Confirm demise from prior. TECHNIQUE:: Transabdominal (TA) FINDINGS: GESTATIONAL AGE / DATING Dates by Current Scan: Gestational sac not clearly identified SURVEY Endometrium appears heterogeneous. Possible gestational sac seen near the cervix. No IUP identified o n today's exam. HEART RATE: Not seen IMPRESSION: Gestational sac possibly within the cervix continued surveillance recommended. [facility], , 08/26/2024 1:59 PM
[2024-08-26] MEDS: HYDROmorphone 1 MG/ML 1 ML SYRINGE IVP STA (14:39)
--- NOTE | 2024-08-26 15:58 | ED ---
Female Urogenital HPI - General Chief complaint: Vaginal Bleeding Stated complaint: vaginal bleeding Time Seen by Provider: 08/26/24 12:35 Source: patient Mode of arrival: ambulatory Limitations: no limitations - History of Present Illness Initial comments: 29-year-old female presents emergency department with lower abdominal pain. Patient reports that she had a miscarriage on Thursday. She was around 8 to 10 weeks. She has had some bleeding. States that the bleeding got heavier last night into this morning. She has significant lower abdominal pain. She admits to nausea. No vomiting. She states she is saturating a pad every 1/2 hour. Patient was given RhoGAM at her last visit. She has yet to see her [facility]. Patient follows with Dr Mensah at [facility]. She does have an appointment scheduled for next week. She denies any fevers. No dysuria, hematuria or difficulty voiding. No diarrhea, constipation, black or bloody stools. No other alleviating, precipitating or modifying factors - Related Data Previous Rx's Medication Instructions Recorded Sertraline [Zoloft] 50 mg PO DAILY 30 Days #30 tab 03/11/24 HYDROcodone/APAP 5-325MG [[place] 1 tab PO Q6HR PRN 3 Days #12 tab 08/26/24 5-325] Ibuprofen [Motrin] 600 mg PO Q8HR PRN #30 tab 08/26/24 Allergies Allergy/AdvReac Type Severity Reaction Status Date / Time No Known Allergies Allergy Verified 08/26/24 12:34 Review of Systems ROS Statement: Those systems with pertinent positive or pertinent negative responses have been documented in the HPI. ROS Other: All systems not noted in ROS Statement are negative. Past Medical History Past Medical History: No Reported History Additional Past Medical History / Comment(s): bladder infections History of Any Multi-Drug Resistant Organisms: None Reported Past Surgical History: Cholecystectomy Additional Past Surgical History / Comment(s): unwanted breast tissue removed from under arms Past Anesthesia/Blood Transfusion Reactions: No Reported Reaction Past Psychological History: Anxiety Smoking Status: Never smoker Past Alcohol Use History: None Reported Past Drug Use History: None Reported - Past Family History Father Family Medical History: No Reported History Mother Family Medical History: No Reported History General Exam Limitations: no limitations General appearance: alert, in distress Head exam: Present: atraumatic, normocephalic, normal inspection Eye exam: Present: normal appearance, PERRL, EOMI. Absent: scleral icterus, conjunctival injection, periorbital swelling ENT exam: Present: normal exam, mucous membranes moist Neck exam: Present: normal inspection. Absent: tenderness, meningismus, ly mphadenopathy Respiratory exam: Present: normal lung sounds bilaterally. Absent: respiratory distress, wheezes, rales, rhonchi, stridor Cardiovascular Exam: Present: normal rhythm, tachycardia, normal heart sounds. Absent: systolic murmur, diastolic murmur, rubs, gallop, clicks GI/Abdominal exam: Present: soft, normal bowel sounds. Absent: distended, tenderness, guarding, rebound, rigid Speculum exam: Present: vaginal bleeding, tissue (At the cervical os) Extremities exam: Present: normal inspection, full ROM, normal capillary refill. Absent: tenderness, pedal edema, joint swelling, calf tenderness Back exam: Present: normal inspection Neurological exam: Present: alert, oriented X3, CN II-XII intact Psychiatric exam: Present: normal affect, normal mood Skin exam: Present: warm, dry, intact, normal color. Absent: rash Course Vital Signs 08/26/24 08/26/24 12:34 16:39 Temperature 98.4 F Pulse Rate 107 H 82 Respiratory 18 16 Rate Blood Pressure 107/73 125/79 O2 Sat by Pulse 99 100 Oximetry Medical Decision Making - Medical Decision Making Was pt. sent in by a medical professional or institution (DI Lazcano, CUSTOMER SUPPORT TECHNICIAN, urgent care, hospital, or long term...) When possible be specific @ -Patient sent in from her OB office Did you speak to anyone other than the patient for history (EMS, parent, family, police, friend...)? What history was obtained from this source @ -No Did you review nursing and triage notes (agree or disagree)? Why? @ -I reviewed and agree with nursing and triage notes Were old charts reviewed (outside hosp., previous admission, EMS record, old EKG, old radiological studies, urgent care reports/EKG's, long term records)? Report findings @ -I reviewed the chart from Thursday night where patient was seen in our emergency department for same complaint Differential Diagnosis (chest pain, altered mental status, abdominal pain women, abdominal pain men, vaginal bleeding, weakness, fever, dyspnea, syncope, h eadache, dizziness, GI bleed, back pain, seizure, CVA, palpatations, mental health, musculoskeletal)? @ -Differential Vaginal Bleeding: Spontaneous , threatened , molar , ectopic , bloody show, incompetent cervix, abruptioplacenta, placenta previa, uterine rupture, dysfunctional uterine bleeding, hemorrhage, uterine fibroids, this is not meant to be an all-inclusive list. EKG interpreted by me (3pts min.). @ -Not done X-rays interpreted by me (1pt min.). @ -None done CT interpreted by me (1pt min.). @ -None done U/S interpreted by me (1pt. min.). @ -Yes and demonstrates a low within the cervix What testing was considered but not performed or refused? (CT, X-rays, U/S, labs)? Why? @ -None What meds were considered but not given or refused? Why? @ -None Did you discuss the management of the patient with other professionals (pr ofessionals i.e. , PA, CUSTOMER SUPPORT TECHNICIAN, lab, RT, psych nurse, adoption social worker, fence manufacture supervisor, teacher, airfield engineer officer, therapeutic case manager)? Give summary @ -I discussed the case with the [facility]. Informed them that the patient will follow-up in their office for continued treatment of her miscarriage with the need to ensure that her beta quant returns to 0 Was smoking cessation discussed for >3mins.? @ -No Was critical care preformed (if so, how long)? @ -No Were there social determinants of health that impacted care today? How? (Homelessness, low income, unemployed, alcoholism, drug addiction, transportation, low edu. Level, literacy, decrease access to med. care, fci, rehab)? @ -No Was there de-escalation of care discussed even if they declined (Discuss DNR or withdrawal of care, Hospice)? DNR status @ -No What co-morbidities impacted this encounter? (DM, HTN, Smoking, COPD, CAD, Canc er, CVA, ARF, Chemo, Hep., AIDS, mental health diagnosis, sleep apnea, morbid obesity)? @ -None Was patient admitted / discharged? Hospital course, mention meds given and route, prescriptions, significant lab abnormalities, going to OR and other pertinent info. @ -Upon arrival patient seen and evaluated in room 23. Thorough history and physical exam was performed. IV access was established. Patient was administered pain medications. Laboratory studies are conducted. Ultrasound was performed. I did perform a pelvic exam. Patient does have tissue within her cervical os. I did remove this. Patient has controlled bleeding at this time. She is hemodynamically stable. Patient already received RhoGAM on Thursday. I did call and speak with her OB office. instructed that she needs to follow-up with them to ensure that her beta quant goes back down to 0. Patient pain is markedly improved at this time. She feels comfortable going home. She is instructed to return for any new or worsening symptoms. Patient agreeable plan was discharged home in stable condition Undiagnosed new problem with uncertain prognosis? @ -No Drug Therapy requiring intensive monitoring for toxicity (Heparin, Nitro, Insulin, Cardizem)? @ -No Were any procedures done? @ -Pelvic exam with suction removal of blood and tissue Diagnosis/symptom? @ -Acute abdominal pain, acute vaginal bleeding, incomplete Acute, or Chronic, or Acute on Chronic? @ -Acute Uncomplicated (without systemic symptoms) or Complicated (systemic symptoms)? @ -Complicated Side effects of treatment? @ -No Exacerbation, Progression, or Severe Exacerbation? @ -No Poses a threat to life or bodily function? How? (Chest pain, [place], [place], pneumonia, PE, COPD, DKA, ARF, appy, cholecystitis, CVA, Diverticulitis, Homicidal, Suicidal, threat to staff... and all critical care pts) @ -Yes as patient was having heavy bleeding - Lab Data Result diagrams: 08/26/24 12:59 08/26/24 12:59 Lab Results 08/26/24 08/26/24 08/26/24 Range/Units 12:50 12:59 12:59 WBC 15.0 H (3.8-10.6) k/uL RBC 4.05 (3.80-5.40) m/uL Hgb 10.8 L (11.4-16.0) gm/dL Hct 32.9 L (34.0-46.0) % MCV 81.2 (80.0-100.0) fL MCH 26.6 (25.0-35.0) pg MCHC 32.7 (31.0-37.0) g/dL RDW 15.3 (11.5-15.5) % Plt Count 259 (150-450) k/uL MPV 8.5 Neutrophils % 80 % Lymphocytes % 13 % Monocytes % 4 % Eosinophils % 2 % Basophils % 0 % Neutrophils # 11.9 H (1.3-7.7) k/uL Lymphocytes # 2.0 (1.0-4.8) k/uL Monocytes # 0.7 (0-1.0) k/uL Eosinophils # 0.3 (0-0.7) k/uL Basophils # 0.0 (0-0.2) k/uL Hypochromasia Slight Sodium (137-145) mmol/L Potassium (3.5-5.1) mmol/L Chloride (98-107) mmol/L Carbon Dioxide (22-30) mmol/L Anion Gap mmol/L BUN (7-17) mg/dL Creatinine (0.52-1.04) mg/dL Est GFR (CKD-EPI)AfAm (>60 ml/min/1.73 sqM) Est GFR (CKD-EPI)NonAf (>60 ml/min/1.73 sqM) Glucose (74-99) mg/dL Calcium (8.4-10.2) mg/dL Total Bilirubin (0.2-1.3) mg/dL AST (14-36) U/L ALT (4-34) U/L Alkaline Phosphatase (38-126) U/L Total Protein (6.3-8.2) g/dL Albumin (3.5-5.0) g/dL HCG, Quant mIU/mL Urine Color Light Red Urine Appearance Cloudy H (Clear) Urine pH 5.5 (5.0-8.0) Ur Specific [place] 1.021 (1.001-1.035) Urine Protein 1+ H (Negative) Urine Glucose (UA) Negative (Negative) Urine Ketones Negative (Negative) Urine Blood Large H (Negative) Urine Nitrite Negative (Negative) Urine Bilirubin Negative (Negative) Urine Urobilinogen <2.0 (<2.0) mg/dL Ur Leukocyte Esterase Small H (Negative) Urine RBC >182 H (0-5) /hpf Urine WBC 15 H (0-5) /hpf Urine Bacteria Few H (None) /hpf Urine Mucus Rare H (None) /hpf Blood Type O Negative Blood Type Recheck O Neg Bld Type Recheck Status No Antibody Screen NEGATIVE Spec Expiration Date 08/29/2024 - 235808/26/24 Range/Units 12:59 WBC (3.8-10.6) k/uL RBC (3.80-5.40) m/uL Hgb (11.4-16.0) gm/dL Hct (34.0-46.0) % MCV (80.0-100.0) fL MCH (25.0-35.0) pg MCHC (31.0-37.0) g/dL RDW (11.5-15.5) % Plt Count (150-450) k/uL MPV Neutrophils % % Lymphocytes % % Monocytes % % Eosinophils % % Basophils % % Neutrophils # (1.3-7.7) k/uL Lymphocytes # (1.0-4.8) k/uL Monocytes # (0-1.0) k/uL Eosinophils # (0-0.7) k/uL Basophils # (0-0.2) k/uL Hypochromasia Sodium 137 (137-145) mmol/L Potassium 3.8 (3.5-5.1) mmol/L Chloride 106 (98-107) mmol/L Carbon Dioxide 24 (22-30) mmol/L Anion Gap 7 mmol/L BUN 12 (7-17) mg/dL Creatinine 1.17 H (0.52-1.04) mg/dL Est GFR (CKD-EPI)AfAm 72 (>60 ml/min/1.73 sqM) Est GFR (CKD-EPI)NonAf 62 (>60 ml/min/1.73 sqM) Glucose 94 (74-99) mg/dL Calcium 9.0 (8.4-10.2) mg/dL Total Bilirubin 0.4 (0.2-1.3) mg/dL AST 15 (14-36) U/L ALT 9 (4-34) U/L Alkaline Phosphatase 72 (38-126) U/L Total Protein 6.5 (6.3-8.2) g/dL Albumin 3.8 (3.5-5.0) g/dL HCG, Quant 45568.7 mIU/mL Urine Color Urine Appearance (Clear) Urine pH (5.0-8.0) Ur Specific [place] (1.001-1.035) Urine Protein (Negative) Urine Glucose (UA) (Negative) Urine Ketones (Negative) Urine Blood (Negative) Urine Nitrite (Negative) Urine Bilirubin (Negative) Urine Urobilinogen (<2.0) mg/dL Ur Leukocyte Esterase (Negative) Urine RBC (0-5) /hpf Urine WBC (0-5) /hpf Urine Bacteria (None) /hpf Urine Mucus (None) /hpf Blood Type Blood Type Recheck Bld Type Recheck Status Antibody Screen Spec Expiration Date Disposition Clinical Impression: Vaginal bleeding, Incomplete Disposition: HOME SELF-CARE Condition: Stable Instructions (If sedation given, give patient instructions): Miscarriage (ED) Additional Instructions: Please follow-up with your [facility] within 1 week. You will have some bleeding however if you have any significant pain or bleeding, return to the emergency department. Alternate taking the medications for pain every 4 hours. Remain on pelvic rest. Your hormones must return to 0 before attempting to get again. Prescriptions: Ibuprofen [Motrin] 600 mg PO Q8HR PRN #30 tab PRN Reason: Pain HYDROcodone/APAP 5-325MG [Wes[place] 5-325] 1 tab PO Q6HR PRN 3 Days #12 tab PRN Reason: Pain Is patient prescribed a controlled substance at d/c from ED?: Yes When asked, does pt state using other controlled substances?: No If prescribed controlled substance>3 days was MAPS reviewed?: Prescribed <3 Days If opioid is for acute pain is fill amount 7 days or less?: Yes Referrals: Bob Mensah MD [Primary Care Provider] - 1-2 days Time of Disposition: 15:58
[2024-08-26 16:41] VITALS: BP 125/79; PULSE 82; RESP 16
== END 2024-08-26 16:40 | disposition home or self-care (01) ==
LOC: EC 12:07
DX: O03.4 Incomplete spontaneous abortion without complication (principal)
CPT/HCPCS: 36415; 86900; 86901; 88305; 80053; 85025; 86850; 81001; 84702; 76815; 99285; J2270; J2405; J1171